=== PATIENT | female | born 1995 | race Caucasian/White ===

== ENCOUNTER 2020-06-30 16:39 | Emergency (ER) | payer OTHER ==
[~2020-06-30 16:39] MED LIST: KEPPRA250 MG PO; KEPPRA750 MG PO; LODINE CAP 300300 MG PO; MACROBID 100 M100 M1 PO; VISTARIL25 MG PO
[2020-06-30 18:23] LABS: RED BLOOD COUNT 4.88 M/UL (4.00-5.10); WHITE BLOOD COUNT 7.5 K/UL (4.5-11.0)
[2020-06-30 18:44] LABS: BUN/CREATININE RATIO 12 (0-10)
[2020-06-30] MEDS ORDERED: MOBIC15 MG PO (19:41)
[2020-06-30] MEDS ORDERED: CYCLOBENZAPRINE5 MG PO (19:41)
== END 2020-06-30 20:12 | disposition home or self-care (01) ==
LOC: ER1 16:39
PROVIDERS: Physician Assistant
DX: R07.89 Other chest pain (principal)
CPT/HCPCS: 71045; 80053; 82550; 82553; 83874; 84484; 85025; 85379; 93005; 96374; 99285; J1885

== ENCOUNTER 2020-08-07 02:21 | Emergency (ER) | payer OTHER ==
[~2020-08-07 02:21] MED LIST changes: +CYCLOBENZAPRINE5 MG PO; +MOBIC15 MG PO
[2020-08-07 03:07] LABS: HEMOGLOBIN 13.7 gm/dl (12.3-15.3); RED BLOOD COUNT 4.83 M/UL (4.00-5.10); WHITE BLOOD COUNT 8.2 K/UL (4.5-11.0)
[2020-08-07 03:26] LABS: BUN/CREATININE RATIO 16 (0-10)
[2020-08-07] MEDS ORDERED: ZOFRAN ODT 4 MG4 MG PO (04:12)
== END 2020-08-07 04:15 | disposition home or self-care (01) ==
LOC: ER1 02:21
PROVIDERS: Family Medicine
DX: R53.1 Weakness (principal); R42 Dizziness and giddiness; R63.8 Other symptoms and signs concerning food and fluid intake; Z79.899 Other long term (current) drug therapy
CPT/HCPCS: 80053; 83690; 83735; 84439; 84443; 85025; 93005; 99285